=== PATIENT | female | born 1975 | race Caucasian/White ===

== ENCOUNTER 2016-11-04 08:58 | Emergency (ER) | payer MEDICAID ==
[~2016-11-04] VITALS: Ht 185.4 cm; Wt 122.5 kg
[2016-11-04 10:52] VITALS: BP 130/5
== END 2016-11-04 11:10 | disposition home or self-care (01) ==
LOC: EMS 08:59
DX: M25.561 Pain in right knee (principal); Z88.0 Allergy status to penicillin
CPT/HCPCS: 99284

== ENCOUNTER 2018-05-29 20:35 | Emergency (ER) | payer MEDICAID ==
[~2018-05-29] VITALS: Ht 185.4 cm; Wt 113.6 kg
[2018-05-29] MEDS ORDERED: IPRATROPIUM BROMIDE 0.5 MG/2.5 ML NEB SOLUTION NEB ONE (21:15)
[2018-05-29] MEDS ORDERED: ALBUTEROL SULFATE 2.5 MG/0.5 ML NEB SOLUTION NEB ONE (21:15)
[2018-05-29 21:52] LABS: INFLUENZA TYPE A NEGATIVE FOR TYPE A (NEGATIVE); INFLUENZA TYPE B NEGATIVE FOR TYPE B (NEGATIVE)
[2018-05-29] MEDS ORDERED: ALBUTEROL SULFATE HFA 90 MCG/PUFF 8 GM INHALER IH ONE (22:15)
[2018-05-29] MEDS ORDERED: ACETAMINOPHEN 500 MG TABLET PO ONE (23:15)
[2018-05-29] MEDS ORDERED: AZITHROMYCIN 250 MG TABLET PO ONE (23:15)
[2018-05-29 23:59] VITALS: BP 111/67
== END 2018-05-30 00:05 | disposition home or self-care (01) ==
LOC: EMS 20:39
DX: J18.9 Pneumonia, unspecified organism (principal); F17.210 Nicotine dependence, cigarettes, uncomplicated; F12.90 Cannabis use, unspecified, uncomplicated; Z88.0 Allergy status to penicillin; Z90.49 Acquired absence of other specified parts of digestive tract; Z98.51 Tubal ligation status
CPT/HCPCS: 87804; 93005; 94640; 99406; J3535

== ENCOUNTER 2019-12-29 13:03 | Emergency (ER) | payer MEDICAID, OTHER ==
[~2019-12-29] VITALS: Ht 185.4 cm; Wt 127.3 kg
[2019-12-29 13:46] LABS: COVID AG,FIA SOURCE NASOPHARYNGEAL
[2019-12-29 15:25] VITALS: BP 131/67
== END 2019-12-29 15:30 | disposition home or self-care (01) ==
LOC: EMS 13:03
DX: K21.9 Gastro-esophageal reflux disease without esophagitis (principal); F17.210 Nicotine dependence, cigarettes, uncomplicated; F12.90 Cannabis use, unspecified, uncomplicated; Z20.828 Contact with and (suspected) exposure to other viral communicable diseases; Z90.89 Acquired absence of other organs; Z88.0 Allergy status to penicillin
CPT/HCPCS: 87426

== ENCOUNTER 2022-07-27 16:03 | Emergency (ER) | payer SELFPAY ==
[~2022-07-27] VITALS: Ht 185.4 cm; Wt 127.3 kg
[2022-07-27 16:17] VITALS: BP 152/88
[2022-07-27] MEDS ORDERED: METF-1211 PO (16:17)
[2022-07-27] MEDS ORDERED: BACI28OI9 TP (20:42)
[2022-07-27] MEDS ORDERED: DOXY-354 PO (20:42)
[2022-07-27] MEDS ORDERED: BACITRACIN 28 GM OINTMENT TP ONE (20:45)
[2022-07-27 20:51] LABS: GLUCOSE,POINT OF CARE 66 MG/DL (70-110)
== END 2022-07-27 21:09 | disposition home or self-care (01) ==
LOC: EMS 16:06
DX: L08.9 Local infection of the skin and subcutaneous tissue, unspecified (principal); E11.9 Type 2 diabetes mellitus without complications; K21.9 Gastro-esophageal reflux disease without esophagitis; F17.210 Nicotine dependence, cigarettes, uncomplicated; F12.90 Cannabis use, unspecified, uncomplicated; K80.20 Calculus of gallbladder without cholecystitis without obstruction; Z90.49 Acquired absence of other specified parts of digestive tract; Z98.51 Tubal ligation status; Z88.0 Allergy status to penicillin; Z98.890 Other specified postprocedural states
CPT/HCPCS: 82948; 82962; 99283